=== PATIENT | female | born 1950 | race Caucasian/White ===

== ENCOUNTER 2019-07-31 17:04 | Inpatient (IN) | payer MEDICARE ==
[~2019-07-31] VITALS: Ht 157.4 cm; Wt 84.4 kg
[2019-07-31] MEDS ORDERED: ARICEPT5 M1 PO (17:36)
[2019-07-31] MEDS ORDERED: ATIVAN0.5 MG PO (17:37)
[2019-07-31] MEDS ORDERED: NAMENDA10 MG PO (17:38)
[2019-07-31] MEDS ORDERED: B-12500 MC1 PO (17:38)
[2019-07-31] MEDS ORDERED: REMERON30 M1 PO (17:39)
[2019-07-31] MEDS ORDERED: RESTORIL15 MG PO (17:40)
[2019-07-31] MEDS ORDERED: SEROQUEL25 MG PO (17:41)
[2019-07-31] MEDS ORDERED: SEROQUEL100 MG PO (17:41)
[2019-07-31] MEDS ORDERED: ZYPREXA10 M2 IM (17:43)
[2019-07-31] MEDS ORDERED: ZYPREXA2.5 MG PO (17:43)
--- NOTE | 2019-07-31 18:58 | NUR ---
PT ARRIVED ON THE UNIT AT 1858, COVID TEST COMPLETED, RESULTS NEGATIVE. WARREN HUMPHREYS a 69 year old F admitted via stretcher A DIRECT ADMIT FROM [facility] as a voluntary BY POA admission. Arrived on unit at 1658. ALLERGIES: CORTICOSTEROIDS Vital signs are: SEE FLOWSHEET -- . VERBAL CONSENT RECEIVED FROM PO FOR the following forms with stated understanding: Authorization For The Release of Medical Information, Clothing List, Consent to Voluntary Admission and Hospitalization, Consent and Release Forms/Receipt of Rights, Acknowledgement of Advance Directive Information, Behavioral Health Consent Form, and Informed Consent of Medications. Admitted under the services of Dr. LORETTA DOZIER,[facility]. A search was conducted and hazardous articles were removed. Client was oriented to the unit. KARLY CAZARES
[2019-07-31 19:00] VITALS: BP 128/71
[2019-07-31 19:10] VITALS: BP 128/71
[2019-07-31 20:00] VITALS: BP 128/71
--- NOTE | 2019-07-31 20:35 | NUR ---
HOSPITALIST CALLED AT [phone], SPOKE TO , UPDATED ON NEW ADMISSION AND MED REC BEING COMPLETE, READY FOR REVIEW. DR. YOON STATED TO PLACE CONSULT UNDER . NO OTHER ORDERS RECEIVED.
--- NOTE | 2019-07-31 20:55 | NUR ---
ON UNIT TO SEE PATIENT AT THIS TIME. UPDATE PROVIDED. NO NEW ORDERS RECEIVED.
--- NOTE | 2019-08-01 01:20 | NUR ---
P-CONFUSED, NONSENSICAL I-ASSESS ORIENTATION, MOOD, AND BEHAVIOR. PRESENT REALITY AND REORIENT. PROVIDE 1:1 WITH THERAPEUTIC INTERVENTIONS. ENCOURAGE MEDICATION COMPLIANCE AND EDUCATE. MONITOR SLEEP. R-PT ALERT AND ORIENTED TO SELF, CONFUSED IN ALL OTHER AREAS. PT CALM AND PLEASANT, WANDERS AROUND UNIT WITH A STEADY GAIT. REQUIRES FREQUENT REDIRECTION TO NOT TO ENTER PEERS ROOMS AND TAKE BELONGINGS. NO EXIT SEEKING BEHAVIORS NOTED. PT NONSENSICAL, UNABLE TO PARTICIPATE IN ADMISSION PROCESS DUE TO COGNITION, INFORMATION USED PROVIDED FROM FACILITY. SKIN ASSESSMENT COMPLETE, BRUISING NOTED TO BILATERAL UPPER EXTREMITIES IN VARIOUS STAGES OF HEALING. BILATERAL FEET WITH DRY FLAKEY SKIN, CALLOUSED AREA NOTED TO RIGHT HEEL. SKIN INTACT. PT MEDICATION COMPLIANT WITHOUT DIFFICULTY, UNRECEPTIVE TO EDUCATION WHEN PRESENTED. PT VOICES NO SI/HI, HALLUCINATIONS, OR DELUSIONS. NO NOTED RESPONDING TO INTERNAL STIMULI. NO PHYSICAL COMPLAINTS NOTED. PT INDEPENDENT IN ADL'S WITH PROMPTING, STAND BY ASSIST, CONTINENT OF BOWEL AND BLADDER. PT CURRENTLY LAYING DOWN WITH EYES CLOSED, RESPIRATIONS EASY AND REGULAR, NO SIGNS OR SYMPTOMS OF DISTRESS NOTED. P-CONTINUE TO MONITOR MOOD AND BEHAVIORS. MAINTAIN Q 15 MIN CHECKS AND ELOPEMENT PRECAUTIONS.
--- NOTE | 2019-08-01 04:57 | NUR ---
WARREN HUMPHREYS [id number] Please refer to the physician's history and physical for past medical history, comorbid conditions, and allergies. Diagnosis: INTERMITTENT EXPLOSIVE DISORDER Chuy Score: 20,LOW OR NO RISK WOUND DESCRIPTIONS: Wound Number:1 Right heel dry and flaky area noted with several fissures noted. No drainage noted at time of assessment. Patient stated this has been there for a little bit and will continue to care for this when she returns home. Surface the patient is resting on: Proform SKIN PREVENTION RECOMMENDATION: 1. Pressure redistribution support surface as appropriate 2. Elevate heels 3. Remove boots/TEDS every shift and reapply 4. Head of bed 30 degrees as tolerated 5. Assess nutrition and hydration 6. Manage moisture 7. Avoid the use of containment devices while in bed 8. Use absorptive products on surfaces limit layers of linens on bed 9. Turn and reposition every 1-2 hours in bed and every 1 hour in chair as tolerated 10. Weight shifts every 15 minutes while up in chair 11. Offloading with pillows or device to keep heels elevated off bed 12. Monitor skin at least every shift 13. Inspect under medical devices twice a day WOUND TREATMENT RECOMMENDATIONS: Cleanse bilateral feet with soap and water pat areas dry then apply lac-hydrin bid please don't apply in between toes. Heel raiser pro boots to bilateral feet while in bed.
--- NOTE | 2019-08-01 06:13 | NUR ---
PATIENT OBSERVED TO HAVE SLEPT APPROX 7 HOURS WITH X1 BRIEF AWAKENING TO USE THE RESTROOM. NO SIGNS OR SYMPTOMS OF DISTRESS NOTED.
[2019-08-01 06:19] LABS: BASO % 0.7 % (0.0-1.0); EOS # 0.2 10*3/uL (0.0-0.4); EOS % 2.8 % (1.0-4.0); LYMPH # 2.1 10*3/uL (1.3-4.4); MEAN CELL VOLUME 88.4 fl (81.0-99.0); MEAN CORPUSCULAR HGB 27.8 pg (27.0-31.0); MEAN CORPUSCULAR HGB CONC 31.5 g/dl (33.0-37.0); MEAN PLATELET VOLUME 10.8 fl (9.6-12.3); MONO # 0.4 10*3/uL (0.1-1.0); MONO % 6.4 % (3.0-9.0); NEUT # 2.8 10*3/uL (2.3-7.9); NEUT % 52.1 % (47.0-73.0); PLATELET COUNT AUTOMATED 290 10*3/uL (130-400); RED BLOOD COUNT 4.64 10*6/uL (4.10-5.10); RED CELL DISTRI WIDTH 15.6 % (0-14.5); WHITE BLOOD COUNT 5.5 10*3/uL (4.8-10.8)
[2019-08-01 06:40] LABS: ALBUMIN 3.4 gm/dl (3.1-4.5); ALKALINE PHOSPHATASE 85 U/L (45-117); BUN 4 mg/dl (7-24); CHLORIDE 110 mmol/L (98-107); CHOLESTEROL 136 mg/dL (<200); CREATININE 0.65 mg/dL (0.55-1.02); HDL CHOLESTEROL 56 mg/dl (40-60); LDL CHOLESTEROL 60 mg/dL (9-159); POTASSIUM 3.4 mmol/L (3.5-5.1); SGOT/AST 25 IU/L (3-35); SGPT/ALT 27 U/L (12-78); SODIUM 146 mmol/L (136-145); TRIGLYCERIDES 102 mg/dl (<150); VLDL CHOLESTEROL 20 mg/dL (6-40)
[2019-08-01 08:00] VITALS: BP 114/53
[2019-08-01 08:00] LABS: VITAMIN D, 25-HYDROXY 22.2 ng/mL (30-100)
--- NOTE | 2019-08-01 08:15 | NUR ---
Treatment Plan meeting was held via telephone with Dr. Talavera, GILBERTO Washington, CARMEN, FACTORY HELPER-S and Director Sales And Marketing. Plan for discharge Next week. Pt. came to [facility] from [facility]. Will reach out to facility today to discuss discharge Planning.
--- NOTE | 2019-08-01 09:26 | NUR ---
PATIENT ESCULATING GOING INTO OTHER PATIENT'S ROOM, TOOK WHEELCHAIR OUT OF ANOTHER PATIENT'S ROOM AND ALSO STRUCK NURSE, INCREASED PACING IN HALLWAY. NON SENSICAL SPEECH. PRN ATIVAN 1 MG GIVEN PO AT THIS TIME.
--- NOTE | 2019-08-01 09:35 | NUR ---
Dr. León notified of wound care recommendations.
--- NOTE | 2019-08-01 10:26 | NUR ---
PRN ATIVAN INEFFECTIVE, CONTINUE TO MONITOR BEHAVIORS AND BEING INTRUSIVE.
--- NOTE | 2019-08-01 11:35 | NUR ---
Nutritional Support Services Note: Pt receives a regular diet as ordered. Callouses noted to foot. Staff to encourage intake of all meals. Will provide pt with a night snack daily. Ht.5'2 Wt.186# Will follow if needed. [place] pt food preferences. Nallely Martin Rdn Ld
--- NOTE | 2019-08-01 11:52 | NUR ---
Spoke with Cesia in Admissions at [facility]. 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 Clinical updates faxed to facility.
--- NOTE | 2019-08-01 12:00 | NUR ---
Shift chart check completed.
--- NOTE | 2019-08-01 15:18 | NUR ---
PATIENT INCREASE PACING IN HALLWAY, WALKING INTO OTHER PATIENT'S ROOM. INTRUSIVE. NURSE ATTEMPTED TO PROVIDE ONE ON ONE AND REDIRECTED OUT OF A MALE PATIENT'S ROOM. PATIENT ATTEMPTED TO CLOSE DOOR ON NURSE AND PITCH NURSE. PATIENT BECOMING IRRITABLE. PRN ATIVAN 1MG PO GIVEN AT THIS TIME.
--- NOTE | 2019-08-01 16:13 | NUR ---
P- CONFUSION, NONSENSICAL SPEECH, EXIT SEEKING, WANDERING, HOARDING, INTRUSSIVE, LABILE, TEARFUL, RESTLESS I- ASSESS MOOD, ORIENTATION, SI/HI, HALLUCINATIONS, DELUSIONS OR PAIN. PROVIDE MEDICATIONS ON TIME WITH EDUCATION ON EACH. PROVIDE REORIENTATION AND REDIRECTION WHEN CONFUSION IS NOTED. REDIRECT PATIENT WHEN EXIT SEEKING AND WANDERING INTO OTHER PATIENT ROOMS. 1:1 THERAPEUTIC INTERACTION WITH EMOTIONAL SUPPORT AND VENTILATION OF FEELINGS PROVIDED. OFFER TASKS FOR PATIENTS THAT PATIENT WANTED TO DO WITH STAFF; SUCH FOLDING BLANKETS, MAKING HER BED, AND WIPING OFF THE TABLE. R- PATIENT IS ALERT TO HER NAME. ALL REORIENTATION IS INEFFECTIVE. UNABLE TO ASSESS PATIENT DUE TO NONSENSICAL RESPONSES. NO S/S OF INTERACTING WITH INTERNAL STIMULI. NO DELUSIONAL OR PARANOID THOUGHT PROCESS NOTED. PATIENT IS RESTLESS, WANDERING UP AND DOWN THE HALLS, AND GOING INTO OTHER PATIENTS ROOMS. INTRUSSIVE, COMING INTO OTHER PATIENTS ROOMS WHILE PROVIDING CARE TO THOSE PATIENTS. PT IS GOING THROUGH OTHER PATIENTS STUFF AND TAKING THINGS. PATIENT WAS GIVEN COLORING PENCILS AND A COLORING PAGE, FOUND COLORED PENCILS IN PATIENTS PANTS; EDUCATED PATIENT ON SAFETY AND HAD PT RETURN THOSE TO THIS NURSE AND LOCKED THEM BACK UP. PUT NAME ON PATIENTS DOOR, SO SHE REMEMBERED IT WAS HERS. PT CONTINUES TO REFUSE TO GO INTO HER ROOM, PT STATED "LOOK THERES MY ROOM, IT HAS MY NAME ON", WALKED PAST HER ROOM AND WENT INTO ANOTHER PT'S ROOM. PATIENT TRIED TO GO INTO A MALE PEERS ROOM THAT WAS ACROSS THE REYNA, REFUSING TO EXIT, NONSENSICAL SPEECH, PINCHED ANOTHER NURSE, TRIED CLOSING THE DOOR. PT EDUCATED ON HOW SHE SHOULD NOT BEING GOING INTO OTHER PATIENT ROOM AND THAT WAS A MALE PEER. PT REFUSED TO EXIT THE ROOM, PT WENT OVER AND WENT THROUGH THAT PT'S NIGHT STAND, FOUND NOTHING, AND THEN WALKED OUT NONSENSICAL. MEDICATION COMPLIANT. EATING AND DRINKING VARIES, GOOD AT TIMES AND WHEN PT IS TO BUSY LIKE AT LUNCH SHE WILL NOT EAT. SUGGESTED TO DIETARY TO TRY TO SEND UP FINGER FOODS. PROVIDE REDIRECTION WHEN EXIT SEEKING, INEFFECTIVE. PATIENT REMAINS RESTLESS, WALKING UP AND DOWN THE HALLS. PT WAS TRYING TO HELP THIS NURSE, OFFERED PT MAKE HER BED AND WIPE OFF THE TABLES, PT WAS MORE RELAXED AND CALM WHEN SHE WAS DOING TASKS. THIS DID NOT WORK ON THE PATIENT EVERY TIME, BECAME NONSENSICAL AND IRRITABLE AT TIMES. PT WAS NOTED TRYING TO MOVE AROUND DINING ROOM FURNITURE, REDIRECTION EFFECTIVE. AMBULATES WITH A STEADY GAIT. P- ASSESS MOOD, ORIENTATION, SI/HI, HALLUCINATIONS, DELUSUIONS OR PAIN EVERY SHIFT. REORIENT FREQUENTLY WITH CONFUSION. PROVIDE 1:1 THERAPEUTIC INTERACTION, REASSURANCE WHEN NECESSARY. PROVIDE WITH TASKS TO KEEP PT BUSY. REDIRECT WHEN WANDERING AND EXIT SEEKING. PROVIDE MEDICATIONS ON TIME WITH EDUCATION ON EACH. ENCOURAGE FOOD AND FLUIDS, OFFER FINGER FOODS. Q15 MINUTE CHECKS MAINTAINED FOR SAFETY.
--- NOTE | 2019-08-01 16:18 | NUR ---
PRN ATIVAN INEFFECTIVE, CONTINUE TO MONITOR BEHAVIORS AND MOOD.
[2019-08-01 20:00] VITALS: BP 101/68; BP 137/55
--- NOTE | 2019-08-01 21:15 | NUR ---
CLIENT INTRUSIVE TOWARD MALE PEER. UNABLE TO REDIRECT WITH VERBAL SUPPORT, FOOD, TV DRINKS. CLIENT ATTEMPTING TO SCRATCH ANYONE NEAR HER. TRIED TO TALK WITH HER AND SHE THREW AN ENTIRE GLASS OF WATER IN MY FACE. WENT TO GET GEODON AND SECURITY CAME ONTO FLOOR FOR ROUTINE CHECK. THEY ASSISTED IN GETTING HER SAFETY IN ARACELIS CHAIR AND I THEN GAVE HER HER SHOT. EXPLAINED WHAT AND WHY I WAS DOING THIS. SPEECH IS WORD SALAD AT THIS TIME. SHE IS SITTING IN QUIET ROOM STAFF SITS OUT IN REYNA TO MONITOR SAFETY. =
--- NOTE | 2019-08-01 21:31 | NUR ---
REMAINS AWAKE AT THIS TIME
--- NOTE | 2019-08-01 22:31 | NUR ---
REMAINS AWAKE AT THIS TIME
--- NOTE | 2019-08-01 22:31 | NUR ---
REMAINS AWAKE AT THIS TIME
--- NOTE | 2019-08-02 00:19 | NUR ---
TAKEN TO BED AFTER GOING TO BATHROOM. REMAINS NONCOMPLIANT WITH FALL PROTECTION, NONSKID SOCKS. HOLDING RAIL. GEODON EFFECTIVE FOR DECREASING AGGRESSION
--- NOTE | 2019-08-02 00:19 | NUR ---
TAKEN TO BED AFTER GOING TO BATHROOM. REMAINS NONCOMPLIANT WITH FALL PROTECTION, NONSKID SOCKS. HOLDING RAIL. GEODON EFFECTIVE FOR DECREASING AGGRESSION
--- NOTE | 2019-08-02 03:56 | NUR ---
Upon discharge recommend patient to follow up for wound care in outpatient setting continue current wound care orders at discharging facility.
--- NOTE | 2019-08-02 04:03 | NUR ---
RESTING WELL SINCE GOING TO BED. MOVES SELF AROUND IN BED WITHOUT DIFFICULTY
--- NOTE | 2019-08-02 04:03 | NUR ---
RESTING WELL SINCE GOING TO BED. MOVES SELF AROUND IN BED WITHOUT DIFFICULTY
--- NOTE | 2019-08-02 04:09 | NUR ---
24 HR chart check completed.
--- NOTE | 2019-08-02 05:47 | NUR ---
SLEPT PAST 0100AM. MOVING SELF IN BED. RESP EASY NONLABORED
--- NOTE | 2019-08-02 08:08 | NUR ---
Dr. Beckwith notified of wound care recommendations.
--- NOTE | 2019-08-02 08:15 | NUR ---
Treatment Plan meeting was held via telephone with Dr. Talavera RN, TECHNICAL TRAINING MANAGER-S and Morning News Producer. Plan for discharge next week. 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
[2019-08-02 08:59] VITALS: BP 115/51
--- NOTE | 2019-08-02 09:51 | NUR ---
Spoke with pt's Lee yesterday via phone for family meeting. Lee provided pt history and the events that have led to pt's multiple recent psych admissions. Discussed pt's discharge plan. Lee confirmed that he wants pt to return to [facility].
[2019-08-02 10:48] VITALS: BP 115/51
--- NOTE | 2019-08-02 12:30 | NUR ---
Pt has been wandering the unit most of the AM. Pt has come to this automobile service writer's outer office door numerous times. Walked with pt in the giles and attempted to redirect her. Pt is primarily nonsensical in speech. However, she will have brief times when she answers questions and interacts appropriately. Pt did not have any inappropriate behaviors with this automobile service writer.
[2019-08-02 20:00] VITALS: BP 120/68
--- NOTE | 2019-08-02 21:22 | NUR ---
P---LABILE EMOTIONS, GUARDED, CONFUSION, DISTRUPTIVE AND DOESN'T FOLLOW PERSONAL SPACE RULES OR FALL PRECAUTIONS. REFUSES TO WEAR NONSLIP SOCKS I--REVIEWED MEDICATIONS. ATTEMPTS TO REORIENT UNSUCCESSFUL. GAVE TIME FOR 1:1 WHICH SHE IS UNABLE TO SIT FOR. EMOTIONAL SUPPORT PROVIDED R--NONSENSICAL SPEECH, INTRUSIVE. NOT MANIC YESTERDAY. AGREED TO TAKE MOST OF MEDICATIONS CRUSHED IN PUDDING. COMES TO THIS NURSE WITH ATTEMPTS TO TALK BUT MORE WORD SALAD AND UNABLE TO EXPRESS THOUGHTS. INTERACTIVE WITH PEERS FOR SHORT PERIOD COLORING IN DININGROOM P--MONITOR FOR CHANGES IN MOOD/BEHAVIOR. MONITOR Q 15 MINUTES AND PRN FOR SAFETY. CONTINUE EMOTIONAL SUPPORT.
--- NOTE | 2019-08-03 04:43 | NUR ---
24 HR chart check completed.
--- NOTE | 2019-08-03 06:09 | NUR ---
SLEPT WELL PAST 2100 PM/ MOVES SELF WELL
[2019-08-03 07:43] VITALS: BP 120/88
--- NOTE | 2019-08-03 08:10 | NUR ---
Patient in room resting quietly. Respirations easy and regular. Vital signs stable. No overt distress. Telehealth with Padmini Kate CNP. Updates provided. LAURENT IZQUIERDO
--- NOTE | 2019-08-03 08:15 | NUR ---
Treatment Plan meeting was held via telephone with Dr. Talavera, GILBERTO Washington, CARMEN, FLOORPERSON-S and Reprographics Technician. Plan for discharge Next week. Pt. will return to [facility].
--- NOTE | 2019-08-03 10:45 | NUR ---
AM GROUP PT WANDERED IN AND OUT OF GROUP THERAPY, PT PLEASANT.
--- NOTE | 2019-08-03 11:49 | NUR ---
Pt wandering unit this AM. Pt did sit with this property underwriter for a short time in the quiet room. 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 Pt did not display any inappropriate behaviors with this property underwriter.
--- NOTE | 2019-08-03 14:47 | NUR ---
Clinical Updates faxed to [facility] Attn: Cesia [phone].
--- NOTE | 2019-08-03 18:24 | NUR ---
PT ALERT TO PERSON WITH CONFUSION NOTED. PT EXITING SEEKING. UNABLE TO REDIRECT. PT IN/OUT OF OTHERS ROOMS. NO HALLUCINATIONS OR DELUSIONS NTOED. MEDICATION COMPLIANT WITHOUT DIFFICULTY. PT COMPLIANT WITH INVEGA 234 TO LEFT DELTOID. WILL CONTINUE TO MONITOR BEHAVIORS WITH Q15 MINUTE SAFETY CHECKS.
[2019-08-03 20:00] VITALS: BP 125/90
--- NOTE | 2019-08-03 20:09 | NUR ---
P--INTRUSIVE, DISRUPTIVE, CONFUSED, AGGITATED I--REMOVED HER FROM PEERS ROOM. SHE ATTEMPTED TO KICK STAFF.. REFUSED TO REDIRECT TO HER ROOM AND CONTINUES TO TRY AND GET IN PEER ROOM. ADDITIONAL STAFF ASSISTED AND PLACED HER IN ARACELIS CHAIR. TRIED 1:1 WITHOUT SUCCESS. UNABLE TO REDIRECT. OFFERED MEDICATIONS R--MY ROOM, DON'T TOUCH ME. KICKING AT STAFF. REFUSED ALL PO MEDICATIONS. YOU CAN'T MAKE ME. REFUSES TO FOLLOW FALL PROGRAM P--PROVIDE EMOTIONAL SUPPORT. REORIENT TO PLACE AND TIME. MONITOR FOR CHANGES IN BEHAVIOR/MOOD.
--- NOTE | 2019-08-03 20:35 | NUR ---
AGREED TO TAKE MEDICATIONS. TOOK PO FLUID. MOVES SELF AROUND IN CHAIR. CONTINUING TO MONITOR
--- NOTE | 2019-08-03 23:05 | NUR ---
AGREED TO TAKE MEDICATIONS. TOOK PO FLUID. MOVES SELF AROUND IN CHAIR. CONTINUING TO MONITOR
--- NOTE | 2019-08-04 02:27 | NUR ---
24 HR chart check completed.
--- NOTE | 2019-08-04 04:30 | NUR ---
HAS SLEPT WELL SINCE GETTING MEDICATIONS LAST NIGHT AFTER 2100PM. MOVES SELF IN BED WITHOUT DIFFICULTY
--- NOTE | 2019-08-04 05:45 | NUR ---
SLEPT WELL PAST 2215PM
[2019-08-04 07:22] VITALS: BP 118/62
--- NOTE | 2019-08-04 10:01 | NUR ---
AM GROUP PT WAS NAPPING IN HER ROOM DURING GROUP THERAPY, MOVIE, COLORING, AND LOW STIMULATION.
--- NOTE | 2019-08-04 16:42 | NUR ---
PM GROUP ACTIVITY WITH BEACH BALL COPING SKILLS/ POSITIVE REINFORCEMENT HELD THIS AFTERNOON. PT WAS NOT PRESENT SHE WAS IN QUIET ROOM RESTING.
[2019-08-04 20:00] VITALS: BP 108/75
--- NOTE | 2019-08-04 23:14 | NUR ---
P-CONFUSION I-REDIRECTION WITH 1:1 THERAPEUTIC INTERVENTIONS AND PRESENT REALITY. EDUCATE AND ENCOURAGE MEDICATION COMPLIANCE. R-PATIENT MEDICATION COMPLIANT AT HS. PATIENT REFUSED NOURISHMENT AT HS BUT PROVIDED FLUIDS. PATIENT ISOLATIVE AT TIMES THIS SHIFT BUT REDIRECTABLE. PATIENT WITH NO SUICIDAL OR HOMICIDAL IDEATIONS. PATIENT WITH NO DELUSIONS OR HALLUCINATIONS AT THIS TIME. P-CONTINUE TO ENCOURAGE MEDICATION COMPLIANCE, CONTINUE TO PRESENT REALITY, ENCOURAGE GROUP THERAPY WHILE AWAKE
--- NOTE | 2019-08-05 03:56 | NUR ---
PATIENT WITH INCONTINENT EPISODE WHILE IN BED. NURSING STAFF X 2 IN ROOM FOR HANDS ON CARE. PATIENT COMBATIVE, SCRATHCING, KICKING , SPITTING , AND PINCHING NURSING STAFF. NURSING STAFF UNABLE TO REDIRECT PATIENT. ALL NONPHARMACOLOGIC INTERVENIONS ATTEMPTED WITH INEFFECTIVE RESULTS. PATIENT MEDICATED WITH ATIVAN 1MG PO WITH SOMEWHAT EFFECTIVE RESULTS AT THIS TIME
--- NOTE | 2019-08-05 05:47 | NUR ---
PATIENT SLEPT 5 HOURS OF INTERRUPTED SLEEP THROUGHOUT SHIFT. Q 15 MINUTE CHECKS MAINTAINED. 24 HR chart check completed.
[2019-08-05 08:00] VITALS: BP 113/74
--- NOTE | 2019-08-05 08:19 | NUR ---
Patient in dining room eating breakfast. Respirations easy and regular. Vital signs stable. No overt distress. STEVEN GOINS, ON UNIT TO ASSESS PT. UPDATES PROVIDED. LAURENT IZQUIERDO RN
[2019-08-05 20:00] VITALS: BP 127/79
--- NOTE | 2019-08-05 22:28 | NUR ---
P-CONFUSION, IRRITABLE, STRIKING OUT I-REDIRECTION WITH 1:1 THERAPEUTIC INTERVENTIONS AND PRESENT REALITY. EDUCATE AND ENCOURAGE MEDICATION COMPLIANCE. R-PATIENT MEDICATION COMPLIANT AT HS. PATIENT PROVIDED NOURISHMENT AND FLUIDS AT HS. PATIENT ISOLATIVE IN ROOM AND GOING INTO PEERS BELONGINGS. DIFFICULTY WITH REDIRECTING PATIENT OUT OF PEERS BED. PATIENT STRIKING OUT WHEN ATTEMPTING TO GET PATIENT OUT OF PEERS BED. PATIENT ATTEMPTING TO SCRATCH. PATIENT MEDICATED WITH ATIVAN 1MG PO WITH EFFECTIVE RESULTS. NURSING STAFF ABLE TO REDIRECT PATIENT FROM BED. PATIENT WITH NO SUICIDAL OR HOMICIDAL IDEATIONS. PATIENT WITH NO DELUSIONS OR HALLUCINATIONS AT THIS TIME. P-CONTINUE TO ENCOURAGE MEDICATION COMPLIANCE, CONTINUE TO PRESENT REALITY, ENCOURAGE GROUP THERAPY WHILE AWAKE
--- NOTE | 2019-08-06 06:25 | NUR ---
PATIENT SLEPT 6 HOURS OF INTERRUPTED SLEEP THROUGHOUT SHIFT. Q 15 MINUTE CHECKS MAINTAINED. 24 HR chart check completed.
[2019-08-06 07:48] VITALS: BP 112/68; BP 121/67
--- NOTE | 2019-08-06 08:00 | NUR ---
Patient resting quietly in room, declined to come down for breakfast at this time. Respirations easy and regular. Vital signs stable. No overt distress. SHONDA MARTINEZ on unit to see pt at this time, update given. updated via telemedicine.
--- NOTE | 2019-08-06 08:15 | NUR ---
Treatment plan meeting was held this a.m. with GILBERTO Washington, RN, AT, LEXX-S and Speaking Unit Assembler. Plan for discharge at the end of the week. Pt. will return to [facility].
--- NOTE | 2019-08-06 13:00 | NUR ---
GROUP NOTE - "WHAT MAKES YOU HAPPY AND SATISFIED" PT ATTEND GROUP BUT WAS NOT ABLE TO PARTICIPATE D/T COGNITIVE DEFICIT.
--- NOTE | 2019-08-06 13:43 | NUR ---
RECIEVED CALL FROM PHARMACIST RE: INVEGA SUSTENNA 156MG NOT AVAILABLE UNTIL TUESDAY. HUSEYIN LOGAN [facility]- NOTIFIED. STATES TO CHANGE ORDER TO INVEGA SUSTENNA 234MG IM TO BE GIVEN TODAY. WITNESSED BY 2ND RN.
--- NOTE | 2019-08-06 14:28 | NUR ---
INVEGA SUSTENNA 234MG IM GIVEN IN RIGHT BUTTOCK AND TOLERATED WELL.
--- NOTE | 2019-08-06 14:28 | NUR ---
INVEGA SUSTENNA 234MG IM GIVEN TO RIGHT GLUTEUS MEDIUS PER PHYSICIAN ORDER. PT TOLERATED WELL.
--- NOTE | 2019-08-06 16:05 | NUR ---
Shift chart check completed.
--- NOTE | 2019-08-06 16:41 | NUR ---
P- CONFUSION, WANDERING I- ORIENTATION, MOOD AND BEHAVIORS ASSESSED. ASSESSED FOR SI/HI, HALLUCINATIONS, PARANOIA AND/OR DELUSIONS. MEDICATIONS ADMINISTERED PER PHYSICAN'S ORDERS. ASSISTANCE WITH ADL CARE PROVIDED NEEDED. ELOPEMENT PRECAUTIONS MAINTAINED. ENCOURAGED PT TO ATTEND AND PARTICIPATE IN KYLE MILIEU GROUPS AND ACTIVITIES. R- PT IS ALERT AND ORIENTED TO SELF ONLY, OTHERWISE CONFUSED. ST/LT MEMORY GAPS NOTED. RESPS EASY AND EVEN ON ROOM AIR. MOOD APPEARS TO BE STABLE WITH FLAT AFFECT. MINIMAL SPONTANEOUS VERBALIZATIONS. PT WILL ANSWER SIMPLE QUESTIONS WITH SHORT 1-2 WORD ANSWERS WITH PROMPTING. PT DENIES SI/HI, INTENT OR PLAN. NO HALLUCINATIONS, PARANOIA OR DELUSIONS NOTED. MEDICATION COMPLIANT THIS DATE. NO AGGRESSIVE BEHAVIORS DISPLAYED. PT CONTINUES TO WANDER HALLWAYS, EASILY REDIRECTED AWAY FROM EXIT DOOR THIS DATE. NO DISTRESS NOTED. P- PLAN TO CONTINUE CURRENT TX, CONTINUE TO MONITOR MOOD AND BEHAVIORS, PROVIDE REDIRECTION AND REALITY PRESENTATION NEEDED. CONTINUE ELOPEMENT PRECAUTIONS.
--- NOTE | 2019-08-06 19:42 | NUR ---
24 HR chart check completed.
[2019-08-06 19:53] VITALS: BP 110/60
--- NOTE | 2019-08-06 21:09 | NUR ---
P-CONFUSION, WANDERING I-REDIRECT, ADMINISTER MEDS, MONITOR SLEEP R-DEPRESSED MOOD WITH FLAT AFFECT. ALERT TO PERSON ONLY. CONFUSED. SHORT & LONG-TERM MEMORY DEFICITS. HAS WANDERED UP & DOWN THE HALLWAY GOING TO DIFFERENT DOORS. RESPONDS TO SIMPLE DIRECTIVES. ATE SNACK. COMPLIANT TAKING MEDICATIONS WHOLE. P-CONTINUE TO MONITOR
--- NOTE | 2019-08-07 04:54 | NUR ---
PT HAS SLEPT PAST 2129
[2019-08-07 07:49] VITALS: BP 111/67
--- NOTE | 2019-08-07 08:20 | NUR ---
Patient eating breakfast in dining room with peers. Respirations easy and regular. Vital signs stable. No overt distress. SHONDA MARTINEZ & updated on pt progress.
--- NOTE | 2019-08-07 08:30 | NUR ---
Treatment Plan meeting was held via telephone with Dr. Talavera, GILBERTO Washington RN, CUTTER TENDER-S and histology aide. Plan for discharge Next week. Possible Tuesday.
--- NOTE | 2019-08-07 15:18 | NUR ---
Shift chart check completed.
[2019-08-07 20:00] VITALS: BP 110/62
--- NOTE | 2019-08-07 20:11 | NUR ---
24 HR chart check completed.
--- NOTE | 2019-08-08 01:07 | NUR ---
P-CONFUSION I-REDIRECT, ADMINISTER MEDS, MONITOR SLEEP R-DEPRESSED MOOD WITH FLAT AFFECT. ALERT TO PERSON ONLY. CONFUSED. SHORT & CUSTODIAL MEMORY DEFICITS. ATE SNACK. COMPLIANT TAKING MEDICATIONS. P-CONTINUE TO MONITOR
--- NOTE | 2019-08-08 05:37 | NUR ---
PT HAS SLEPT PAST 2214
--- NOTE | 2019-08-08 05:40 | NUR ---
WARREN HUMPHREYS [id number] Please refer to the physician's history and physical for past medical history, comorbid conditions, and allergies. Diagnosis: INTERMITTENT EXPLOSIVE DISORDER Chuy Score: 20,LOW OR NO RISK WOUND DESCRIPTIONS: Wound Number:1 Right heel dry and flaky area noted with several fissures noted. No drainage noted at time of assessment. Patient stated this has been there for a little bit and will continue to care for this when she returns home. Surface the patient is resting on: Isoflex SKIN PREVENTION RECOMMENDATION: 1. Pressure redistribution support surface as appropriate 2. Elevate heels 3. Remove boots/TEDS every shift and reapply 4. Head of bed 30 degrees as tolerated 5. Assess nutrition and hydration 6. Manage moisture 7. Avoid the use of containment devices while in bed 8. Use absorptive products on surfaces limit layers of linens on bed 9. Turn and reposition every 1-2 hours in bed and every 1 hour in chair as tolerated 10. Weight shifts every 15 minutes while up in chair 11. Offloading with pillows or device to keep heels elevated off bed 12. Monitor skin at least every shift 13. Inspect under medical devices twice a day WOUND TREATMENT RECOMMENDATIONS: Continue hydragaurd for prevention to periarea and buttocks Continue lac hydrin to bilateral lower extremities Continue heel raiser pro boots to bilateral feet while in bed Continue wheelchair cushion when oob
--- NOTE | 2019-08-08 06:10 | NUR ---
Dr. Argueta notified of wound care recommendations
[2019-08-08 08:00] VITALS: BP 115/75
--- NOTE | 2019-08-08 08:15 | NUR ---
Treatment Plan meeting held this a.m. via telephone with Dr. Talavera, GILBERTO Washington RN, INSOLE DOUBLER-S and Duty Officer. Plan for discharge Tuesday with Return to [facility]. Will reach out to facility to discuss discharge.
--- NOTE | 2019-08-08 11:51 | NUR ---
Spoke with Cesia at [facility]. Discussed discharge plans and plan for discharge on Tuesday. Clinical Updates faxed to facility.
--- NOTE | 2019-08-08 12:34 | NUR ---
Received Call from Cesia at [facility]. Unable to accept Pt. Tuesday due to Holiday and No admission Nurse. Tuesday is requested for discharge.
--- NOTE | 2019-08-08 16:32 | NUR ---
P: AGGRESSION WITH HAND ON CARE, PATIENT ATTEMPTING TO DEFACATE ON FLOOR IN HALLWAY. WANDERING, EXIT SEEKING AND BEING INTRUSIVE TOWARDS OTHER PATIENTS. I: ONE ON ONE AND REDIRECTION PROVIDED R: PATIENT IS ALERT TO SELF WITH CONFUSION. LONG/SHORT TERM MEMORY DEFICITS. MOOD IS IRRITABLE/ANGRY AND AGGRESSIVE WITH HANDS ON CARE. INTRUSIVE TOWARDS OTHER PATIENTS. MOOD HAS IMPROVED, BUT STILL BECOMES AGGRESSIVE WITH HANDS ON CARE FOR TOILETING NEEDS AND CHANGING OF CLOTHING. NO VOICED STATEMENTS OF HI/AI OR PAIN. NO RESPONSE TO INTERNAL STIMULI OBSERVED. MEDICATION COMPLAINT. Q 15 MINUTE SAFETY CHECKS MAINTAINED. 2 PERSON ASSIST WITH ACTIVITIES OF DAILY LIVING, INCONTINENT OF BOWEL AND BLADDER. SET UP FOR MEALS, INTAKES ARE POOR WITH MUCH ENCOURAGEMENT TO EAT FOOD AND DRINK FLUIDS. AMBULATORY WITH STEADY GAIT. P: CONTINUE TO MONITOR FOR AGGRESSION, EXIT SEEKING, BEING INTRUSIVE AND MEDICATION COMPLIANCE. PROVIDE ONE ON ONE AND REDIRECTION NEEDED, 2 PERSON ASSIST WITH TOILETING, BATHING AND HYGIENE.
[2019-08-08 20:00] VITALS: BP 110/70
--- NOTE | 2019-08-08 21:52 | NUR ---
P-CONFUSION, WANDERING, NONSENSICAL. I-ASSESS ORIENTATION, MOOD, AND BEHAVIOR. PRESENT REALITY AND REORIENT. PROVIDE 1:1 WITH THERAPEUTIC INTERVENTIONS. ENCOURAGE MEDICATION COMPLIANCE AND EDUCATE. MONITOR SLEEP. R-PATIENT ALERT TO SELF, CONFUSED IN ALL OTHER AREAS. PT WANDERS AROUND UNIT, GAIT STEADY, REFUSES TO WEAR NON-SKID SLIP SOCKS DESPITE FALL EDUCATION. PT ALSO REQUIRES FREQUENT REDIRECTION TO NOT OTHER PEERS ROOMS OR GO TOWARD EXIT DOORS. ELOPEMENT PRECAUTIONS CONTINUED AND MAINTAINED. PATIENT WITH UNDERLYING IRRITABILITY WITH INTERACTIONS, SPEECH SOFT, NONSENSICAL AT TIMES. PT VOICES NOT SI/HI, HALLUCINATIONS, OR PAIN. PT MEDICATION COMPLIANT WITHOUT DIFFICULTY, UNABLE TO EDUCATE DUE TO COGNITION. PT COMPLIANT WITH HOC WITH X1 STAND BY ASSIST, CONTINENT/INCONTINENT OF BOWEL AND BLADDER. NO COMBATIVE BEHAVIORS NOTED AT THIS TIME. P-CONTINUE TO MONITOR MOOD AND BEHAVIORS. MAINTAIN Q 15 MIN CHECKS AND ELOPEMENT PRECAUTIONS.
--- NOTE | 2019-08-09 05:23 | NUR ---
24 HOUR CHART CHECK COMPLETED.
--- NOTE | 2019-08-09 05:34 | NUR ---
PATIENT OBSERVED ON Q 15 MIN CHECKS TO HAVE SLEPT APPROX 7 HOURS UNINTERRUPTED. NO SIGNS OR SYMPTOMS OF DISTRESS NOTED.
[2019-08-09 07:55] VITALS: BP 118/69
--- NOTE | 2019-08-09 10:46 | NUR ---
DR RAPHAEL AND TEAM ON UNIT TO ASSESS PT, UPDATE PROVIDED.
--- NOTE | 2019-08-09 11:39 | NUR ---
P- Confusion; Wandering; Restless at times; Intrussive; Irritability with redirection/hands on care. I- Assess mood, orientation, SI/HI, hallucinations, delusions, or pain. Provide reorientation and redirection when confusion/wandering is noted. 1:1 therapeutic interaction and reassurance provided with irritability. Provide medications on time with education on each. Encourage food and fluid intake, offer finger foods. R- Patient is alert to name. Reorientation remains ineffective. Nonsensical and inappropriate responses to questions. Patient is noted to be wandering into other patients room and going down to the main doors, attempting to open locked doors. Redirection effective, patient becomes irritable with redirection due to causing patient more confusion; Otherwise patient is pleasant. Reassurance/1:1 is provided and effective for patient. Unable to assess patient due to cognition/nonsensical. No S/S of interacting with internal stimuli. No paranoia noted. No S/S of distress noted, resps even and unlabored on room air. Patient ambulates with a steady gait. Medication compliant with no difficulties. Poor PO intake at times due to patient being restless and wandering, encouragement and offering finger foods is effecitive. P- Assess mood, orientation, SI/HI, hallucinations, delusions or pain every shift. Provide reorientation and redirection with confusion/wandering. Provide reassurance and 1:1 with irritability. Encourage food and fluids. Provide medications on time with education on each. Q15 minute checks maintained for safety.
--- NOTE | 2019-08-09 15:04 | NUR ---
Pt continues to primarily wander around unit throughout the day. Walked with pt down giles. Pt was nonsensical in conversation. Pt's facial expression appeared troubled at one point as pt spoke about magic and children, but this was short lived as pt continued to speak in nonsensical fragmented sentences.
--- NOTE | 2019-08-09 15:12 | NUR ---
Treatment Plan meeting was held via telephone with Dr. Talavera RN, WOOL CLASSER-S and Ad Operations Specialist. Plan for discharge Tuesday. Pt. will return to [facility].
[2019-08-09 20:00] VITALS: BP 120/66
--- NOTE | 2019-08-09 22:57 | NUR ---
Patient alert to name only. Patient wandering,intrusive and can be combative with hands on care. Mood is calm at this time. Patient is nonsensical with speech. No over s/s of any responding to internal stimuli noted at this time. Patient compliant with HS medications without any difficulty. Attempted to provide emotional support but patient refused. Redirection is also ineffective. Plan to continue to encourage medication compliance. Also continue to offer emotional support and redirection when needed/appropriate. Will continue to monitor moods/behaviors. Q 15 minute safety checks continued and maintained. See [facility] flowsheet for further documentation.
--- NOTE | 2019-08-10 00:29 | NUR ---
24 HR chart check completed.
--- NOTE | 2019-08-10 05:59 | NUR ---
Patient slept approx. 6 hours throughout shift. Q 15 minute safety checks continued and maintained.
[2019-08-10 07:47] VITALS: BP 123/61
--- NOTE | 2019-08-10 08:08 | NUR ---
Patient eating breakfast in dining room with peers. Respirations easy and regular. Vital signs stable. No overt distress. STEVEN Salmon, assessed pt via telehealth. Updates provided. LAURENT IZQUIERDO
--- NOTE | 2019-08-10 08:15 | NUR ---
Treatment Plan meeting was held via telephone with Dr. Talavera, GILBERTO Washington, RN, EMERGENCY DEPARTMENT NURSE-S and Radiologic Therapist. Plan for discharge Tuesday. Pt. will return to [facility]. Spoke with Cesia from [place] and Notified her of plans to discharge tuesday. Will Follow Next Week.
--- NOTE | 2019-08-10 09:31 | NUR ---
AM GROUP "CRAFTING". PT WAS PRESENT FOR AM GROUP AND ACTIVELY PARTICIPATED
--- NOTE | 2019-08-10 11:11 | NUR ---
Clinical Updates faxed to [facility] Attn: Cesia [phone].
--- NOTE | 2019-08-10 13:47 | NUR ---
PM GROUP MOVIE TIME- PT PRESENT DURING GROUP TIME, REQUIRED REDIRECTION MULTIPLE TIMES TO NOT TOUCH OTHER RESIDENTS.
--- NOTE | 2019-08-10 14:45 | NUR ---
Patient came to this screen writer and intently spoke in a nonsensical manner. Pt was making proper eye contact. After speaking nonsensical, pt stated, "Do you agree with me?" When this screen writer stated that she did agree, pt smiled and hugged this screen writer. Pt expressed appreciation and stated, "You were better than this." Pt then walked into activity room.
--- NOTE | 2019-08-10 18:47 | NUR ---
Pt has been intrustive t/o shift. Pt has difficulty communicating, word salad often present. Pt is pleasant and easily redirected. Pt provided with emotional support and frequent redirection, appears to ease restlessness. Pt continues to exit-seek. Wants and needs anticipated by staff. Pt is medication compliant with some encouragement. Q15 min monitoring per policy for safety.
[2019-08-10 20:00] VITALS: BP 128/72
--- NOTE | 2019-08-10 21:24 | NUR ---
Patient alert to name only. Patient wandering,intrusive and can be combative with hands on care. Mood is calm at this time. Patient is nonsensical with speech. No over s/s of any responding to internal stimuli noted at this time. Patient compliant with HS medications without any difficulty. Attempted to provide emotional support but patient refused. Redirection was effective for a few minutes but then patient forgets and needs redirected again. Plan to continue to encourage medication compliance. Also continue to offer emotional support and redirection when needed/appropriate. Will continue to monitor moods/behaviors. Q 15 minute safety checks continued and maintained. See [facility] flowsheet for further documentation.
--- NOTE | 2019-08-11 00:12 | NUR ---
24 HR chart check completed.
--- NOTE | 2019-08-11 05:18 | NUR ---
Patient slept approx. 7.5 hours throughout shift. Q 15 minute safety checks continued and maintained.
[2019-08-11 07:51] VITALS: BP 131/77
--- NOTE | 2019-08-11 18:34 | NUR ---
NO ADVERSE MOODS OR BEHAVIORS NOTED. PT ALERT TO PERSON ONLY, CONFUSION AND SHORT TERM MEMORY DEFICITS NOTED PER PT BASELINE. PT CONTINUES TO WANDER THROUHGOUT THE UNIT, THIS IS A BASELINE BEHAVIOR. NO HALLUCINATIONS NOTED. PT MED COMPLIANT WITHOUT DIFFICULTY, UNABLE TO PROVIDE MED EDUCATION D/T COGNITION. PT AMBULATORY THROUGHOUT UNIT, GAIT STEADY. PT INCONTINENT OF BOWEL AND BLADDDER, CARE PROVIDED NEEDED. PLAN IS TO MONITOR PT BEHAVIORS ON Q15 MIN SAFETY CHECKS, ENCOURAGE MED COMPLIANCE, PROVIDE DIVERSIONAL ACTIVITIES, PROVIDE EMOTIONAL SUPPORT AND 1:1 FOR PT TO VOICE FEELINGS.
[2019-08-11 19:51] VITALS: BP 107/53
--- NOTE | 2019-08-11 23:26 | NUR ---
P-CONFUSION I-REDIRECTION WITH 1:1 THERAPEUTIC INTERVENTIONS AND PRESENT REALITY. EDUCATE AND ENCOURAGE MEDICATION COMPLIANCE. R-PATIENT MEDICATION COMPLIANT AT HS. PATIENT PROVIDED NOURISHMENT AND FLUIDS AT HS. PATIENT WANDERING ON UNIT AND FREQUENTLY REDIRECTED. PATIENT ISOLATIVE AT TIMES THIS SHIFT BUT REDIRECTABLE. PATIENT WITH POOR SHORT TERM AND HALF-WAY MEMORY DEFICITS. PATIENT WITH NO SUICIDAL OR HOMICIDAL IDEATIONS. PATIENT WITH NO DELUSIONS OR HALLUCINATIONS AT THIS TIME. P-CONTINUE TO ENCOURAGE MEDICATION COMPLIANCE, CONTINUE TO PRESENT REALITY, ENCOURAGE GROUP THERAPY WHILE AWAKE
[2019-08-12 07:58] VITALS: BP 121/67
--- NOTE | 2019-08-12 10:30 | NUR ---
on unit to see pt at this time.
--- NOTE | 2019-08-12 18:51 | NUR ---
PT INTRUSIVE. IN/OUT OF OTHERS ROOMS AND INVASIVE WITH PERSONAL BOUNDRIES. REFUSED AM MEDICATIONS. MULTIPLE REDIRECTIONS NEEDED. SEE [facility] FLOWSHEETS FOR SPECIFIC MONITORING.
[2019-08-12 20:00] VITALS: BP 110/62
--- NOTE | 2019-08-12 20:57 | NUR ---
P--INTRUSIVE, DISRUPTIVE, SHORT TERM MEMORY ISSUES I--EXPLAINED MEDICATIONS . TRIED TO BE THERAPUTIC. REDIRECTION PROVIDED. SNACKS AND FLUIDS PROVIDED BY STAFF R--I TOLD YOU A LONG TIME AGO THAT YOUR ARE LIVING A BEAR. NONSENSICLE SPEECH CONTINUES. UNABLE TO PROCESS AND DIRECTIONS. P--MONITOR FOR CHANGES IN MOOD/BEHAVIOR. MONITR Q 15 MINUTES AND PRN FOR SAFETY. CLIENT REFUSES TO FOLLOW FALL PROTOCOL OR WEAR NON SLIP SOCKS.
--- NOTE | 2019-08-12 22:57 | NUR ---
P--INTRUSIVE, DISRUPTIVE, SHORT TERM MEMORY ISSUES I--EXPLAINED MEDICATIONS . TRIED TO BE THERAPUTIC. REDIRECTION PROVIDED. SNACKS AND FLUIDS PROVIDED BY STAFF R--I TOLD YOU A LONG TIME AGO THAT YOUR ARE LIVING A BEAR. NONSENSICLE SPEEC CONTINUES. UNABLE TO PROCESS AND DIRECTIONS. P--MONITOR FOR CHANGES IN MOOD/BEHAVIOR. MONITR Q 15 MINUTES AND PRN FOR SAFETY. CLIENT REFUSES TO FOLLOW FALL PROTOCOL OR WEAR NON SLIP SOCKS.
--- NOTE | 2019-08-13 00:20 | NUR ---
24 HR chart check completed.
--- NOTE | 2019-08-13 06:02 | NUR ---
SLEPT APRROX 8 HOUR UNINTERUPTED.
[2019-08-13 07:41] VITALS: BP 115/70
[2019-08-13] MEDS ORDERED: RIVASTIGMINE1 EAC2 T (09:46)
[2019-08-13] MEDS ORDERED: MIRTAZAPINE15 M2 PO (09:46)
[2019-08-13] MEDS ORDERED: DIVALPROEX SOD125 M1 PO ×2 (09:46)
[2019-08-13] MEDS ORDERED: BENZTROPINE ME0.5 MG PO (09:46)
[2019-08-13] MEDS ORDERED: Vitamin D (1,000 UNI PO (09:46)
[2019-08-13] MEDS ORDERED: HYDROXYZINE HCL25 MG PO (09:46)
--- NOTE | 2019-08-13 10:53 | NUR ---
DR RAPHAEL ON UNIT TO ASSESS PT, UPDATE PROVIDED.
--- NOTE | 2019-08-13 12:49 | NUR ---
PT ALERT TO PERSON ONLY, CONFUSION AND SHORT TERM MEMORY DEFICITS NOTED PER PT BASELINE. PT MED COMPLIANT WITHOUT DIFFICULTY, UNABLE TO PROVIDE MED EDUCATION DUE TO COGNITION. PT CALM, MOOD IS STABLE. PT SPEECH NONSENSICAL AT TIMES AND INAPPROOPRIATE TO CONVERSATOIN. PT CONTINUES TO WANDER THROUGHOUT THE UNIT, CAN BE INTRUSIVE TO OTHERS, THESE ARE BASELINE BEHAVIORS FOR PT. STAFF CONTINUES TO PROVIDE REDIRECTION AND OFFER DIVERSIONAL ACTIVITIES WITH MINIMAL EFFECTIVENESS. NO HALLUCINATIONS OR DELUSIONS NOTED. NO SUICIDAL THOUGHTS OR BEHAVIORS NOTED. PT AMBULATORY THROUHGOUT UNIT, GAIT STEADY. PT CONTINENT OF BOWEL AND BLADDER, EPISODES OF INCONTINENCE NOTED, CARE PROVIDED NEEDED. PLAN IS TO MONITOR PT BEHAVIORS ON Q15 MIN SAFETY CHECKS, ENCOURAGE MED COMPLIANCE, CONTINUE TO OFFER DIVERSIONAL ACTIVITIES AND REDIRECTION, PROVODE EMOTIONAL SUPPORT AND 1:1 FOR PT TO VOICE FEELINGS.
[2019-08-13 20:00] VITALS: BP 116/62
--- NOTE | 2019-08-14 05:41 | NUR ---
PT HAS SLEPT PAST 2300
[2019-08-14 07:40] VITALS: BP 115/75
--- NOTE | 2019-08-14 08:15 | NUR ---
Treatment Plan meeting was held via telephone with Dr. Talavera, GILBERTO Washington RN and Pensions Retirement Plan Specialist. Plan for discharge today with return to [facility].
--- NOTE | 2019-08-14 09:02 | NUR ---
DR. SCHMITT NOTIFIED OF PATIENT BEING DISCHARGED.
--- NOTE | 2019-08-14 09:50 | NUR ---
Transportation arranged with [facility] to transport with picking supervisor time 12:30. Notified Nursing staff in the Behavioral Health Unit. Call placed to Pt. to notify of discharge, no answer left message for him to return call.
--- NOTE | 2019-08-14 09:54 | NUR ---
Spoke with Cesia at [facility]. Notified of Discharge and citrus picker time of 12:30 p.m.
[2019-08-14] MEDS ORDERED: INVEGA SUSTENN234 MG IM (10:24)
--- NOTE | 2019-08-14 12:42 | NUR ---
NURSE TO NURSE REPORT GIVEN TO LAURENT AT [facility]. [facility] PRESENT. PATIENT ASSISTED ON TO [facility]. ALL BELONGINGS AND DISCHARGE INSTRUCTION SENT WITH PATIENT OFF UNIT.
== END 2019-08-14 12:42 | disposition other institution (70) | DRG 885 ==
LOC: 3N 17:04
PROVIDERS: ADMIT Psychiatry & Neurology Psychiatry
DX: F25.9 Schizoaffective disorder, unspecified (principal); E87.0 Hyperosmolality and hypernatremia; F02.81 Dementia in other diseases classified elsewhere, unspecified severity, with behavioral disturbance; F63.81 Intermittent explosive disorder; G30.9 Alzheimer's disease, unspecified; F41.9 Anxiety disorder, unspecified; F31.81 Bipolar II disorder; G47.00 Insomnia, unspecified; E87.8 Other disorders of electrolyte and fluid balance, not elsewhere classified; E87.6 Hypokalemia; E55.9 Vitamin D deficiency, unspecified; Z88.8 Allergy status to other drugs, medicaments and biological substances; Z79.899 Other long term (current) drug therapy